=== PATIENT | male | born 1980 | race Caucasian/White ===

== ENCOUNTER 2016-08-09 21:18 | Emergency (ER) | payer OTHER ==
[~2016-08-09] VITALS: Ht 172.7 cm; Wt 88.0 kg
[2016-08-09 21:22] VITALS: BP 143/83
== END 2016-08-09 22:35 | disposition home or self-care (01) ==
LOC: ED 22:32
DX: Z00.00 Encounter for general adult medical examination without abnormal findings (principal)
CPT/HCPCS: 93005; 99283